=== PATIENT | female | born 1995 | race Caucasian/White ===

== ENCOUNTER → 2025-04-17 17:17 | Outpatient (CLI) | payer OTHER, SELFPAY ==
--- NOTE | 2025-04-17 17:24 | DI.MRI.S_ITS ---
PROCEDURE: MR KNEE LT WO CON INDICATIONS: LEFT KNEE pain TECHNIQUE: Noncontrast sagittal PD fast spin echo and T2 fast spin echo with fat saturation, sagittal 3-D FLASH with fat saturation; coronal T1 spin echo and PD fast spin echo with fat saturation, and axial PD fast spin echo with fat saturation through the knee. COMPARISON: None. FINDINGS: Image quality: Degraded by body habitus and motion artifact. Menisci: Linear oblique high T2 signal intensity traverses the peripheral 3rd of the medial meniscal body, demonstrating inferior articular surface extension, indicating oblique tearing. Lateral meniscus is intact. 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 Posterior cruciate ligament is intact. Medial structures: The medial collateral ligament appears intact. Visualized portions of the pes anserinus tendons appear normal. No abnormal bursal fluid. Lateral structures: The lateral collateral ligament, long and short heads of the biceps femoris tendon appear intact. The popliteus tendon appears normal. Iliotibial band appears normal. Anterior structures: The quadriceps and patellar tendons appear intact. Patellar alignment is normal. No femoral trochlear dysplasia or ventral trochlear prominence. No edema in the infrapatellar fat pad. Bones and cartilage: No bone marrow contusions or fractures. Articular cartilage fibrillation overlies the lateral patellar facet and lateral femoral trochlea. Mild articular cartilage loss diffusely overlies the weight-bearing aspects of the medial femoral condyle and medial tibial plateau. Joint space: There is physiologic knee joint fluid. No Vásquez's cyst. Normal appearing synovial plicae are incidentally noted. IMPRESSION: 1. Limited examination. 2. Medial meniscal tear. 3. Chronic full-thickness anterior cruciate ligament tear. 4. Medial and patellofemoral compartment articular cartilage loss. Dictated by: Orlin Carlos M.D. on 04/18/2025 at 7:07 Approved by: Orlin Carlos M.D. on 04/18/2025 at 7:09
== END ==
DX: S83.512A Sprain of anterior cruciate ligament of left knee, initial encounter (principal); S83.242A Other tear of medial meniscus, current injury, left knee, initial encounter; X58.XXXA Exposure to other specified factors, initial encounter
CPT/HCPCS: 73721

== ENCOUNTER → 2025-11-02 09:20 | Outpatient (CLI) | payer OTHER, SELFPAY ==
--- NOTE | 2025-11-02 09:22 | DI.MRI.S_ITS ---
PROCEDURE: MR ANKLE LT WO CON INDICATIONS: Left ankle pain; prior lateral talus TECHNIQUE: Noncontrast sagittal T1 spin echo and T2 fast spin echo with fat saturation, axial proton density fast spin echo and T2 fast spin echo with fat saturation, coronal T1 spin echo and T2 fast spin echo with fat saturation through the ankle/hindfoot. COMPARISON: None. FINDINGS: Image quality: Excellent Tendons: Trace tenosynovitis of the posterior tibialis. The flexor digitorum longus, and the flexor hallucis longus are unremarkable. The extensor tendons are unremarkable. Longitudinal split tear of the peroneal brevis, below the lateral malleolus (03:24). The peroneal longus tendon is intact. The distal Achilles tendon is unremarkable. Ligaments: The anterior and posterior tibiofibular ligaments are intact. Thickening of the anterior talofibular ligament, representing prior sprain. The posterior talofibular ligament is intact. The calcaneofibular ligament is unremarkable. The deep portion deltoid ligament is unremarkable. Sinus tarsi: No fibrosis Plantar fascia: Low-grade tear of the lateral cord about the calcaneal insertion. The central cord of the plantar fascia is unremarkable. Muscles: Normal in signal Bones: Mild patchy T2 hyperintensity of the talus, the superior aspect of the calcaneus, and the lateral malleolus, nonspecific and may represent altered weight-bearing. No acute fracture. Trace tibiotalar effusion. IMPRESSION: 1. The longitudinal split tear of the peroneal brevis. 2. Prior sprain of the anterior talofibular ligament. 3. Low-grade tear of the lateral cord of the plantar fascia about the calcaneal insertion. 4. Mild patchy T2 hyperintensity of the talus , the superior aspect of the calcaneus, and the lateral malleolus, nonspecific and may be secondary to altered weight- bearing. No acute fracture. Dictated by: Karyn Dill M.D. on 11/02/2025 at 12:09 Approved by: Karyn Dill M.D. on 11/02/2025 at 12:18
== END ==
LOC: MRI 09:22
DX: S96.812A Strain of other specified muscles and tendons at ankle and foot level, left foot, initial encounter (principal); S93.492A Sprain of other ligament of left ankle, initial encounter; M25.572 Pain in left ankle and joints of left foot
CPT/HCPCS: 73721